=== PATIENT | male | born 1980 | race Caucasian/White ===

== ENCOUNTER 2018-03-24 08:11 | Inpatient (IN) | payer OTHER ==
[~2018-03-24] VITALS: Ht 162.6 cm; Wt 72.6 kg
--- NOTE | 2018-03-24 14:45 | NUR ---
Pre Admission Insole Lip Turner encounters pt in intake office. Pt is intoxicated and smells of alcohol. Endorses having 5 shots of whiskey at 1030 this morning. Pt endorse beginning to feel anxious, like he does when not drinking. Pt endorses drinking 750ml of Whiskey daily for the past 5 years. Pt is A/O x4 and makes his needs known. Pt with a flat affect and depressed mood. Linear thought process and clear to slurred speech pattern. Pt is stable. Vital Signs BP: 137/85 P: 95 R: 18 T: 98.4 O2: 95%
[2018-03-24] MEDS ORDERED: DIAZEPAM 5 MG TABLET PO PRN (15:00)
[2018-03-24] MEDS ORDERED: THIAMINE HCL 200 MG/2 ML VIAL IM ONE (15:00)
[2018-03-24] MEDS ORDERED: MAGNESIUM HYDROXIDE 30 ML LIQUID UDC PO PRN (15:00)
[2018-03-24] MEDS ORDERED: LOPERAMIDE HCL 2 MG CAPSULE PO PRN ×2 (15:00)
[2018-03-24] MEDS ORDERED: ONDANSETRON ODT 4 MG TAB.RAPDIS SL PRN (15:00)
[2018-03-24] MEDS ORDERED: MIRALAX 17 GM POWD.PACK PO PRN (15:00)
[2018-03-24] MEDS ORDERED: diphenhydrAMINE 50 MG CAPSULE PO PRN (15:00)
[2018-03-24] MEDS ORDERED: ACETAMINOPHEN 325 MG TABLET PO PRN (15:00)
[2018-03-24] MEDS ORDERED: DIAZEPAM 10 MG TABLET PO PRN ×2 (15:00)
[2018-03-24] MEDS ORDERED: MAG HYDROX/AL HYDROX/SIMETH 30 ML LIQUID UDC PO PRN (15:00)
[2018-03-24] MEDS ORDERED: CLONIDINE HCL 0.1 MG TABLET PO PRN (15:00)
[2018-03-24] MEDS ORDERED: 5 DAY TAPER VALIUM-SERENITY PROTOCOL PO PRN (15:00)
[2018-03-24] MEDS ORDERED: LORAZEPAM 2 MG/1 ML VIAL IM PRN (15:00)
[2018-03-24] MEDS ORDERED: ONDANSETRON 4 MG/2 ML VIAL IM PRN (15:00)
--- NOTE | 2018-03-24 15:25 | NUR ---
Admission Pt is admitted to [facility] per ambulation, for medical management of ETOH withdrawals. Pt is calm and cooperative, pleasant with marketing copywriter. A/O x4 and makes his needs known. Pt with a linear though process and clear speech pattern. Pt is anxious and beginning to sweat, with some nausea and restlessness noted. Pt endorses drinking 750ml of Whiskey daily x5 years. Pt states his last drink was at 1030 today, when he consumed approximately 5 shots of Whiskey. Pt endorses once a year use of Cocaine and Marijuana. Pt states he was sober for 9 months about 9 years ago after receiving a DUI. Pt endorses this being court ordered. Pt states he first drank alcohol at age 15. Pt states he suffers from nausea, anxiety and tremors when not drinking or more specifically in the mornings. Pt denies a PMH with the exception of a skin yeast over his back and lower rear torso. Pt denies any PPH. Pt states he came to [facility], "to get back to where I was, tired of being tired." " I want to get the tools to stop drinking." " I want to get healthy and get back to being me." " I know I am motivated to stop drinking, so I haven't even thought of relapse." Pt endorses 2 DUI's and relationship issues, including the end of his first marriage directly related to pt's drinking. This is pt's first detox or rehab and his first attempt at continued sobriety. Pt denies any PCP, psychiatrist or psychologist. Pt is admitted and educated on all aspects of admit process, including admission educational material. Pt is oriented to his room and unit, including rules and regulations. Will continue to monitor, support and encourage according to plan of care. Addendum: 03/24/18 at 1628 by GIANCARLO SEPULVEDA RN Pt takes no home medication except for multi-vitamin. Vital Signs BP: 137/85 P: 95 R: 18 T: 98.4 O2: 95% P:010 Addendum: 03/24/18 at 1629 by GIANCARLO SEPULVEDA RN Pt with no history of SA, SI/HI or A/VH. Pt with no history of psychiatric hospitalizations.
[2018-03-24] MEDS: HYDROXYZINE PAMOATE 25 MG CAPSULE PO PRN (15:47)
--- NOTE | 2018-03-24 15:47 | NUR ---
PRN Vistaril Pt is anxious and restless and requests something for anxiety and agitation. Pharmaceutical Process Engineer administered medication per MD order with pt tolerating well. Will continue to monitor, support and encourage according to plan of care.
[2018-03-24 16:43] LABS: *AMPHETAMINE, URINE NEGATIVE (NEGATIVE); *BARBITURATE, URINE NEGATIVE (NEGATIVE); *CANNABINOID, URINE NEGATIVE (NEGATIVE); *COCCAINE, URINE NEGATIVE (NEGATIVE); *OPIATE, URINE NEGATIVE (NEGATIVE); *PHENCYCLIDINE SCREEN,URINE NEGATIVE (NEGATIVE)
--- NOTE | 2018-03-24 16:47 | NUR ---
PRN Re-Assessment Medication effective as evidenced by pt resting with eyes closed, even and unlabored respirations noted. Will continue to monitor, support and encourage according to plan of care.
[2018-03-24 16:55] VITALS: BP 137/85
--- NOTE | 2018-03-24 16:55 | NUR ---
CIWA 9 Pt is beginning to withdraw, with tremors and diaphoresis evident, pt with complaints of tactile hallucinations and nausea. Will continue to monitor, support and encourage according to plan of care.
[2018-03-24 17:49] LABS: BASOPHILS % (AUTO) 0.6 % (0.0-2.0); EOSINOPHILS % (AUTO) 0.3 % (0.0-7.0); HEMATOCRIT 48.3 % (36.7-47.1); HEMOGLOBIN 16.1 g/dL (12.5-16.3); LYMPHOCYTES # (AUTO) 1.4 K/uL (20.0-40.0); LYMPHOCYTES % (AUTO) 33.1 % (20.5-51.5); MEAN CORPUSCULAR HEMOGLOBIN 33.4 uug (23.8-33.4); MEAN CORPUSCULAR HGB CONC 33 g/dL (32.5-36.3); MEAN CORPUSCULAR VOLUME 100.2 fL (73.0-96.2); MONOCYTES # (AUTO) 0.4 K/uL (2.0-10.0); MONOCYTES % (AUTO) 9.3 % (0.0-11.0); NEUTROPHILS # (AUTO) 2.4 K/uL (1.8-8.9); NEUTROPHILS % (AUTO) 56.7 % (38.5-71.5); PLATELET COUNT (AUTO) 193 K/uL (152-348); RED BLOOD CELL COUNT(AUTO) 4.83 MIL/uL (4.06-5.63); WHITE BLOOD COUNT (AUTO) 4.2 K/uL (3.6-10.2)
[2018-03-24 18:32] LABS: BILIRUBIN,TOTAL 0.4 mg/dL (0.2-1.0); CREATININE 0.9 mg/dL (0.6-1.3); MAGNESIUM 2.1 mg/dL (1.8-2.4); POTASSIUM 3.8 mmol/L (3.5-5.1); TOTAL PROTEIN, SERUM 8.3 g/dL (6.4-8.2)
--- NOTE | 2018-03-24 19:00 | NUR ---
End of Shift Silo Operator admitted pt to [facility] today for medical management of ETOH withdrawals. Pt endorses drinking 750ml a day x5 years, last drinking 5 shots at 1030 this am. Pt endorses no PMH or PPH. No history of seizures. This is pts first time in detox or rehab. Pt was admitted mildly intoxicated, but has started having withdrawal symptoms of anxiety, nausea and restless and was administered Vistaril(Anxiety) PRN this shift. Pts last CIWA 9. Pt is calm and cooperative, with anxiety and restless. Pt has a linear thought process and clear speech pattern. Pt with a normal affect and depressed mood. Bed in low position with wheels locked and side rails up x2.
[2018-03-24 20:00] VITALS: BP 128/77
--- NOTE | 2018-03-24 20:00 | NUR ---
Start of Shift Patient noted to be melancholic, isolative and in depressed mood. Patient stares into the ceiling while being spoken to. Patient noted to have gross tremors, gets easily distracted, with increasing anxiety, flushed face and sweating on the face. Patient verbalized: Im starting to feel withdrawal from drinking. I dont like this feeling. Usually, when I start to feel like this, I start drinking and then I feel better. Provided education on importance of adhering to treatment plan and medications that are available to control his withdrawal symptoms. Patient appears disheveled and encouraged patient to take a shower. Latest CIWA=18. Will continue to monitor.
--- NOTE | 2018-03-24 20:37 | NUR ---
RN note PRN Valium Pt noted to have light sensitivity, tremors, increasing anxiety and observed to be fidgety. CIWA=18. Administered Valium 20 mg PO PRN as ordered. Will reassess.
--- NOTE | 2018-03-24 20:40 | NUR ---
PRN Nicotine Patch Pt verbalized Nicotine cravings and requested for Nicotine patch. 14mg administered as ordered.
[2018-03-24] MEDS ORDERED: NICOTINE 14 MG/24HR PATCH TD PRN (21:00)
--- NOTE | 2018-03-24 21:30 | NUR ---
RN note Valium reassess Patient verbalized "feeling better" and decrease in anxiety level. CIWA=12.
--- NOTE | 2018-03-24 21:45 | NUR ---
RN note Nicotine reassess Patient verbalized that his Nicotine cravings has significantly decreased.
[2018-03-25] VITALS: BP 125/68
[2018-03-25 04:00] VITALS: BP 118/71
--- NOTE | 2018-03-25 07:21 | NUR ---
End of Shift Patient continues to be in depressed mood. Patient is melancholic and verbalized feeling fatigue. Patient also continues to have gross tremors, anxiety and flushed face. Patient is observed to have difficulty concentrating. Patient is unkempt and was reminded to take a shower this morning. Fall, universal, seizure and safety prec in place the whole shift. Call light within reach. Latest CIWA=11, slept for 7 hours. Endorsed to AM shift nurse for continuity of care.
--- NOTE | 2018-03-25 07:30 | NUR ---
Start of Shift Appraiser Land received report on 38 year old male admitted to [facility] on 03/24/18 for medical management of ETOH withdrawals. Pt endorses NKA, full code and regular diet. Pt with no PMH and no PPH. Pt to start a Valium taper this morning. Last CIWA 11, per NOC report. Pt administered Valium(withdrawal symptoms) PRN on NOC, per report. Appraiser Land encounters pt in pts room, pt is resting with eyes closed, even and unlabored respirations with rise and fall of chest. Bed in low position with wheels locked and side rails up x2. Will continue to monitor, support and encourage according to plan of care.
--- NOTE | 2018-03-25 08:00 | NUR ---
CIWA 14 Pt complains of nausea, pt is tremulous, diaphoretic, restless and endorses anxiety. Will continue to monitor, support and encourage according to plan of care.
[2018-03-25 08:15] VITALS: BP 145/93
[2018-03-25] MEDS ORDERED: TUBERCULIN,PURIF.PROT.DERIV. 5 TU/0.1 ML TEST ID ONE (09:00)
[2018-03-25] MEDS: FOLIC ACID 1 MG TABLET PO SCH (09:25)
[2018-03-25] MEDS: DIAZEPAM 10 MG TABLET PO SCH ×4 (09:25→20:55)
[2018-03-25] MEDS: MULTIVITAMINS,THERAPEUTIC TABLET PO SCH (09:25)
[2018-03-25] MEDS: THIAMINE HCL 100 MG TABLET PO SCH (09:25)
[2018-03-25 12:45] VITALS: BP 145/85
[2018-03-25 17:20] VITALS: BP 144/91
--- NOTE | 2018-03-25 17:21 | NUR ---
CIWA 15 Pt complains of nausea and chills with sweats. Pt is diaphoretic and tremulous with anxiety and restlessness. Will continue to monitor, support and encourage according to plan of care.
[2018-03-25] MEDS ORDERED: TRAZODONE 50 MG TABLET PO PRN (17:45)
--- NOTE | 2018-03-25 18:56 | NUR ---
End of Shift Donation Specialist provided report on 38 year old male admitted to [facility] on 03/24/18 for medical management of ETOH withdrawals. Pt endorses NKA, full code and regular diet. Pt with no PMH and no PPH. Pt to start a Valium taper this morning. Last CIWA 15 recorded at 1630. Pt with no PRN medication administered. Pt isolates to room and self. Guarded and withdrawn from staff and peers. Flat affect with depressed mood, dysphonic. A/O x4 and makes his needs known. Pt is calm, cooperative and pleasant. Pt has been diaphoretic, tremulous, anxious and restless with complaints of chills. Bed in low position with wheels locked and side rails up x2.
--- NOTE | 2018-03-25 19:11 | NUR ---
Start of shift note Received report from day shift nurse. Pt is a 38 yo male, A+Ox4, presenting to [facility] for ETOH withdrawal. Pt noted to be anxious, restless, and agitated. Pt has HX of yeast rash on back which will be monitored during shift. Pt is on 5 day Valium taper, tolerated well. Respirations even and unlabored. Will continue to monitor.
[2018-03-25] MEDS: IBUPROFEN 600 MG TABLET PO PRN (19:45)
--- NOTE | 2018-03-25 19:47 | NUR ---
PRN Motrin Pt c/o headache 02/08 and requested for PRN Motrin. Medication given and tolerated well. Will reassess within 1 HR. Will continue to monitor.
[2018-03-25 20:10] VITALS: BP 141/83
--- NOTE | 2018-03-25 20:10 | NUR ---
CIWA Assessment CIWA: 15. Pt noted with fine tremors, sweats, anxiety, agitation, itchiness, and moderately severe headache. Respirations even and unlabored. Will continue to monitor.
--- NOTE | 2018-03-25 20:45 | NUR ---
PRN Motrin Reassessment Medication mildly effective. Pt expresses reduction in headache to 4/10. No s/s of ASE noted at this time. Respirations even and unlabored. Will continue to monitor.
--- NOTE | 2018-03-25 21:59 | NUR ---
PRN Trazodone Pt c/o inability to sleep and requested for PRN Trazodone. Medication given and tolerated well. Will reassess within 1 HR. Will continue to monitor.
[2018-03-25] MEDS: HYDROXYZINE PAMOATE 25 MG CAPSULE PO PRN (22:11)
--- NOTE | 2018-03-25 22:11 | NUR ---
PRN Vistaril Pt c/o itchiness and anxiety and requested for PRN Vistaril. Medication given and tolerated well. Will reassess within 1 HR. Will continue to monitor.
--- NOTE | 2018-03-25 22:55 | NUR ---
PRN Trazodone and Vistaril Reassessment Pt expresses reduction in anxiety and itchiness. Pt is resting well in bed. No s/s of ASE noted at this time. Respirations even and unlabored. Will continue to monitor.
--- NOTE | 2018-03-26 00:37 | NUR ---
V/S refused and CIWA deferred for sleep. Respirations even and unlabored. Will continue to monitor.
--- NOTE | 2018-03-26 04:08 | NUR ---
V/S refused and CIWA deferred for sleep. Respirations even and unlabored. Will continue to monitor.
--- NOTE | 2018-03-26 07:00 | NUR ---
End of shift note Pt was continuously noted with agitation, restlessness, anxiety, and headache. Pt remained in room for majority of shift except to get food from kitchen and to go smoke on smoking patio. Pt remained cooperative and compliant with all aspects of treatment. Pt was given PRN Motrin @1947, PRN Trazodone @2159, and PRN Vistaril @2211. Pt is on 5 day Valium taper, tolerated well. Pt slept for a total of 7 HRS. Last CIWA: 15 @2009. Respirations even and unlabored. Will endorse to day shift nurse.
[2018-03-26 07:54] LABS: BILIRUBIN,TOTAL 0.6 mg/dL (0.2-1.0); POTASSIUM 4.3 mmol/L (3.5-5.1); TOTAL PROTEIN, SERUM 7.6 g/dL (6.4-8.2)
[2018-03-26 08:00] VITALS: BP 119/88
--- NOTE | 2018-03-26 08:00 | NUR ---
START OF SHIFT Received report from maintenance technician 3rd shift nurse. Pt is lying in bed resting and easily arousable. He is a 38 yo male admitted to [facility] on 03/24 for ETOH withdrawal. 5 Day Valium taper started on 03/25. He is A&O and ambulatory. Last CIWA was 15 at 1999. He received PRN Trazodone last night for difficulty sleeping. This morning he presents with irritability, light sensitivity, red eyes, tremors, and sweating. He states I changed my clothes three times so far and did not sleep well at all last night. Pt has a blunted affect and depressed mood. RR are even and unlabored, lung sounds clear bilaterally, abdomen soft and non tender, skin is warm with diaphoresis. Valium taper due this morning. Safety measures in place.
[2018-03-26] MEDS: FOLIC ACID 1 MG TABLET PO SCH (09:35)
[2018-03-26] MEDS: DIAZEPAM 10 MG TABLET PO SCH ×3 (09:36→21:27)
[2018-03-26] MEDS: THIAMINE HCL 100 MG TABLET PO SCH (09:36)
[2018-03-26] MEDS: MULTIVITAMINS,THERAPEUTIC TABLET PO SCH (09:36)
--- NOTE | 2018-03-26 09:37 | NUR ---
CIWA Prior to morning medications, pt presents with tremors, diaphoresis, parasthesias, red eyes, anxiety, and agitation. He is irritable and labile with depressed mood. There are several half empty water and soda bottles around the room. He reports difficulty sleeping and has not yet eaten breakfast due to poor appetite. CIWA score 14
[2018-03-26 12:00] VITALS: BP 124/76
[2018-03-26 12:08] LABS: HEPATITIS B SURFACE AG Negative (Negative)
--- NOTE | 2018-03-26 12:30 | NUR ---
CIWA 15 Pt presents with facial flushing, moist skin, nausea, tremors, parasthesias, restricted affect, anhedonia, anxiety and agitation. Pt expressed concern about inability to sleep at night. Psychiatrist made aware. Encouraged increased fluid intake. Addendum: 03/26/18 at 1654 by CHE PONCE RN Heart rate: 98
[2018-03-26 16:30] VITALS: BP 123/78
--- NOTE | 2018-03-26 16:30 | NUR ---
CIWA 11 Pt has moist skin, facial flushing, anxiety, and tremors. His affect is blunt and mood is depressed. Encouraged the development of coping skills. CIWA score is 11.
--- NOTE | 2018-03-26 19:23 | NUR ---
END OF SHIFT Report provided to substation operator nurse. Pt is attending a group meeting. He is a 38 yo male admitted to [facility] on 03/24 for ETOH withdrawal. Pt is A&O and ambulatory. 5 Day Valium taper started on 03/25. He experienced excessive sweating, anxiety, facial flushing, and worry regarding sleep tonight. The pt had difficulty staying sleep last night after PRN Trazodone. Psychiatrist switched Trazodone to Seroquel. No PRN medications administered during the shift. He was pre-occupied with calling home. Pt seems motivated for treatment and attended group meetings. He is compliant with medication regime. Valium is effective at minimizing withdrawal symptoms. Pt denies SI/HI. Last CIWA was 11 at 1630. Safety measures in place
--- NOTE | 2018-03-26 19:24 | NUR ---
Start of shift note Received report from day shift nurse. Pt is a 38 yo male, A+Ox4, presenting to [facility] for for ETOH withdrawal. Pt noted to be anxious, agitated, and restlessness. Pt has HX of yeast rash on back which will be monitored during shift. Pt is on 5 day Valium taper, tolerated well. Respirations even and unlabored. Will continue to monitor.
[2018-03-26 20:49] VITALS: BP 128/87
--- NOTE | 2018-03-26 20:49 | NUR ---
CIWA Assessment CIWA: 10. Pt noted with fine tremors, sweats, anxiety, agitation, and itchiness. Respirations even and unlabored. Will continue to monitor.
[2018-03-26] MEDS: QUETIAPINE FUMARATE 25 MG TABLET PO PRN (22:20)
--- NOTE | 2018-03-26 22:20 | NUR ---
PRN Seroquel Pt c/o inability to sleep and requested for PRN Seroquel. Medication given and tolerated well. Will reassess within 1 HR. Will continue to monitor.
--- NOTE | 2018-03-26 22:46 | NUR ---
PRN Trazodone Pt c/o inability to sleep and requested for PRN Trazodone. Medication given and tolerated well. Will reassess within 1 HR. Will continue to monitor. Addendum: 03/26/18 at 2328 by JÚNIOR ASTUDILLO LVN Error, incorrect patient.
--- NOTE | 2018-03-26 23:20 | NUR ---
PRN Seroquel Reassessment Medication effective. Pt is resting well in bed. No s/s of ASE noted at this time. Respirations even and unlabored. Will continue to monitor.
--- NOTE | 2018-03-27 00:09 | NUR ---
V/S refused and CIWA deferred for sleep. Respirations even and unlabored. Will continue to monitor.
--- NOTE | 2018-03-27 04:57 | NUR ---
V/S refused and COWS and CIWA deferred for sleep. Respirations even and unlabored. Will continue to monitor. Addendum: 03/27/18 at 0532 by JÚNIOR ASTUDILLO LVN CIWA deferred
--- NOTE | 2018-03-27 07:00 | NUR ---
End of shift note Pt was continuously noted with restlessness, agitation, and anxiety. Pt remained in room for majority of shift except to get food from kitchen and to go smoke on smoking patio. Pt remained compliant and cooperative in all aspects of treatment. Pt was given PRN Seroquel @2220. Pt is on 5 day Valium taper, tolerated well. Pt slept for a total of 7 HRS. Last CIWA: 10 @1999. Respirations even and unlabored. Will endorse to day shift nurse.
--- NOTE | 2018-03-27 07:36 | NUR ---
Start Of Shift Patient is a 38 yr old male who was admitted to [facility] on 03/24/18 for a medically supervised withdrawal from Alcohol ( Whisky). He has been placed on a 5 day Valium taper and this is day 3. PRN medications given on PM shift : Seroquel for sleep. He slept for 7+ hours and his last CIWA was 10. Currently he is in bed asleep , breathing even and unlabored, side rails upx2 and call light within reach. Continue to follow MD plan of care and offer support as needed.
[2018-03-27 08:00] VITALS: BP 117/67
--- NOTE | 2018-03-27 08:30 | NUR ---
WA 11 Patients withdrawal symptoms present as flushed face and clammy skin, diaphoresis, irritability and restlessness. No PRN medications were requested or required, scheduled Valium 5 MG PO was given.
[2018-03-27] MEDS: THIAMINE HCL 100 MG TABLET PO SCH (08:40)
[2018-03-27] MEDS: FOLIC ACID 1 MG TABLET PO SCH (08:40)
[2018-03-27] MEDS: MULTIVITAMINS,THERAPEUTIC TABLET PO SCH (08:41)
[2018-03-27] MEDS: DIAZEPAM 5 MG TABLET PO SCH ×4 (08:41→21:37)
[2018-03-27 12:00] VITALS: BP 121/78
--- NOTE | 2018-03-27 12:00 | NUR ---
[facility] 12 Patient withdrawal symptoms present as headache, diaphoresis, bilateral hand tremors, flushed face and restlessness.
[2018-03-27 16:00] VITALS: BP 125/81
--- NOTE | 2018-03-27 16:00 | NUR ---
[facility] 12 Patients withdrawal symptoms include diaphoresis, restlessness, increased irritability and lethargy. No PRN medications were requested but were offered .
--- NOTE | 2018-03-27 18:58 | NUR ---
End Of Shift: Patient is a 38 yr old male who was admitted to [facility] on 03/24/18 for a medically supervised withdrawal from Alcohol ( Whiskey). He is on day 3 of a 5 day Valium taper which is well tolerated. No PRN medications were requested or required on this shift. His withdrawal symptoms have included diaphoresis, lethargy, bilateral hand tremors and restlessness. He is motivated in his recovery and has attended all groups today and is interacting appropriately with his peers. He had a fluid intake of 2400ML,5 Voids and 1BM. Last CIWA 12 @ 1600. Continue to follow MD plan of care, endorsed to slot shift manager
--- NOTE | 2018-03-27 19:10 | NUR ---
Start of shift note Received report from day shift nurse. Pt is a 38 yo male, A+Ox4, presenting to [facility] for ETOH withdrawal. Pt noted with restlessness, anxiety, and agitation. Pt has HX of yeast rash on back which will be monitored during shift. Pt is on 5 day Valium taper, tolerated well. Respirations even and unlabored. Will continue to monitor.
[2018-03-27 20:12] VITALS: BP 138/79
--- NOTE | 2018-03-27 20:12 | NUR ---
CIWA Assessment CIWA: 9. Pt noted with fine tremors, sweat on forehead, anxiety, agitation, and itchiness. Respirations even and unlabored. Will continue to monitor.
[2018-03-27] MEDS: QUETIAPINE FUMARATE 25 MG TABLET PO PRN (23:07)
--- NOTE | 2018-03-27 23:07 | NUR ---
PRN Seroquel Pt c/o inability to sleep and requested for PRN Seroquel. Medication given and tolerated well. Will reassess within 1 HR. Will continue to monitor.
--- NOTE | 2018-03-28 00:48 | NUR ---
V/S refused and CIWA deferred for sleep. Respirations even and unlabored. Will continue to monitor.
--- NOTE | 2018-03-28 04:55 | NUR ---
V/S refused and CIWA deferred for sleep. Respirations even and unlabored. Will continue to monitor.
--- NOTE | 2018-03-28 07:00 | NUR ---
End of shift note Pt was continuously noted with agitation, anxiety, and restlessness. Pt remained in room for majority of shift except to get food from kitchen and to go smoke on smoking patio. Pt remained cooperative and compliant with all aspects of treatment. Pt was given PRN Seroquel @2307. Pt is on 5 day Valium taper, tolerated well. Pt slept for a total of 6 HRS. Last CIWA: 9 @1999. Respirations even and unlabored. Will endorse to day shift nurse.
--- NOTE | 2018-03-28 07:30 | NUR ---
Start of Shift Pt. is a 38 y/o male admitted for the medically managed withdrawal from ETOH. Pt. was placed on a 5 day valium taper to manage withdrawal symptoms. Endorsed pt. continually presented with anxiety, agitation, and restlessness. Received pt. in room. Pt. in his bed with eyes closed. No signs of SOB noted. Pt. was given PRN Seroquel during previous shift. Pt. has been compliant with medication regiment and treatment plan thus far. Last CIWA of 9. Safety measures in place. Will continue to monitor pt.s behavior for safety.
[2018-03-28 08:00] VITALS: BP 119/73
--- NOTE | 2018-03-28 08:00 | NUR ---
CIWA Assessment CIWA of 8. Pt. in bed with eyes open. Pt. presents with fine hand tremors, diaphoresis, anxiety and restlessness. Pt. compliant with his medication regiment and treatment plan. Pt. to be given dose of taper medication (Valium 5mg) within the next hour. Will continue to monitor pt.'s behavior for safety.
[2018-03-28] MEDS: FOLIC ACID 1 MG TABLET PO SCH (08:32)
[2018-03-28] MEDS: MULTIVITAMINS,THERAPEUTIC TABLET PO SCH (08:32)
[2018-03-28] MEDS: THIAMINE HCL 100 MG TABLET PO SCH (08:32)
[2018-03-28] MEDS: DIAZEPAM 5 MG TABLET PO SCH ×3 (08:32→20:31)
--- NOTE | 2018-03-28 12:00 | NUR ---
CIWA Assessment CIWA of 7. Pt. in his room getting his vitals taken. Pt. still presents with fine hand tremors, diaphoresis, anxiety and restlessness. Pt. compliant with his medication regiment and treatment plan. Pt. to be given dose of taper medication (Valium 5mg) at 1500. Will continue to monitor pt.'s behavior for safety
[2018-03-28 12:14] VITALS: BP 140/82
[2018-03-28 16:00] VITALS: BP 141/86
--- NOTE | 2018-03-28 16:00 | NUR ---
CIWA Assessment CIWA of 7. Pt. in laying in bed watching television. Pt. still presents with fine hand tremors, diaphoresis, anxiety and restlessness. Pt. compliant with his medication regiment and treatment plan. Will continue to monitor pt.'s behavior for safety
[2018-03-28] MEDS: KETOCONAZOLE 2% CREAM 30 GM TUBE TP SCH (18:48)
--- NOTE | 2018-03-28 19:18 | NUR ---
End of Shift Pt. is a 38 y/o male admitted for the medically managed withdrawal from ETOH. Pt. was placed on a 5 day valium taper to manage withdrawal symptoms. Throughout shift pt. continually presented with anxiety, agitation, and restlessness. Pt. has been compliant with medication regiment and treatment plan thus far. Pt. able to make his needs be known and was encouraged to verbalize concerns and emotions Last CIWA of 7 at 1600 no PRNs given during previous shift.. Safety measures in place. Will endorse pt.s behavior and care to oncoming shift.
--- NOTE | 2018-03-28 19:30 | NUR ---
Start of Shift Pt admitted 03/24/18 for medically managed withdrawal from ETOH (750mls whiskey/day) on day 4 of a 5 day Valium taper. Pt denies any PMH or PPH. Family Hx of SA with both father and mother. Room somewhat disheveled with empty food and drink containers, pt unshaven.Pt appears older than stated age, unkempt, with poor eye contact. Pt presenting with light diaphoresis, anxiety, agitation, and hand tremors. Pt denies H/A, B/A's, questioning bowel habits (switching from diarrhea to solid, 1-2 times daily). Pt undergoing relationship stress, with ex and mother of his children threatening to remove children from him. Planning on going to 30 day rehab following d/c, doesnt want to be like his father and relapsing same day he gets d/c'd. Will monitor for duration of shift, promptly attending to all s/sx's w/d or distress.
[2018-03-28 20:00] VITALS: BP 146/92
--- NOTE | 2018-03-28 20:00 | NUR ---
CIWA Score CIWA of 6, aeb hand tremors, sweats, restlessness, and anxiety, HR > 100, BP 146/92
[2018-03-28] MEDS: QUETIAPINE FUMARATE 25 MG TABLET PO PRN (20:31)
--- NOTE | 2018-03-28 20:31 | NUR ---
PRN Med Seroquel 50mg PO given for insomnia/sleep. Will continue to monitor, reassessing in 1 hour.
--- NOTE | 2018-03-28 21:31 | NUR ---
PRN Reassessment Seroquel 50mg PO given 1 hour prior for sleep/insomnia. At present pt is sleeping, RR 14, even and nonlabored. Will continue to monitor, and promptly attend to all s/sx's distress or w/d.
[2018-03-29] VITALS: BP 125/58
--- NOTE | 2018-03-29 | NUR ---
Midnight Rounds VS's obtained/stable, CIWA deferred r/t pt somnalance. RR 16, even and nonlabored. Will continue to monitor and promptly attend to all s/sx's distress or w/d
[2018-03-29 04:00] VITALS: BP 130/77
--- NOTE | 2018-03-29 04:00 | NUR ---
0400 Rounds VS's obtained/stable, CIWA deferred r/t pt somnalance. RR 16, even and nonlabored. Will continue to monitor and promptly attend to all s/sx's distress or w/d
--- NOTE | 2018-03-29 07:11 | NUR ---
End of Shift Endorsement given to day nurse. Pt admitted 03/24/18 for medically managed withdrawal from ETOH (750mls whiskey/day) on day 4 of a 5 day Valium taper. Pt denies any PMH or PPH. Family Hx of SA with both father and mother. Pt appearing older than stated age with avoidant eye contact, unshaven and unkempt, hand tremors and light diaphoresis. Pt anxious and restless prior to sleep. Pt slept for 7 hours after receiving Seroquel 50mg PO as sole PRN for shift. VS's obtained 2000, midnight, and 0400 hours, CIWA deferred due to pt somnalence. Pt voided 2 times with 1340 mls intake and no BM's.
[2018-03-29 08:00] VITALS: BP 117/80
--- NOTE | 2018-03-29 08:03 | NUR ---
START OF SHIFT: Received Pt A/O X 4. He reports anxiety,restlessness,and fatigue. He continues on Valium taper to manage s/s of w/d. CIWA 11. Fine tremors noted. Encouraged group attendance to improve coping skills and prevent relapse. Encouraged increased fluids to assist in facilitating detox process.
[2018-03-29] MEDS: FOLIC ACID 1 MG TABLET PO SCH (09:38)
[2018-03-29] MEDS: IBUPROFEN 600 MG TABLET PO PRN (09:38)
[2018-03-29] MEDS: MULTIVITAMINS,THERAPEUTIC TABLET PO SCH (09:39)
[2018-03-29] MEDS: DIAZEPAM 5 MG TABLET PO SCH ×2 (09:39→21:09)
[2018-03-29] MEDS: THIAMINE HCL 100 MG TABLET PO SCH (09:39)
[2018-03-29] MEDS: KETOCONAZOLE 2% CREAM 30 GM TUBE TP SCH (09:40)
[2018-03-29 12:00] VITALS: BP 116/69
--- NOTE | 2018-03-29 13:28 | NUR ---
Therapist prompted client to attend group therapy sessions.
[2018-03-29 16:00] VITALS: BP 120/78
--- NOTE | 2018-03-29 19:06 | NUR ---
END OF SHIFT: Pt continues on Valium taper to manage s/s of w/d which include anxiety,restlessness fatigue and fine tremors. He attended groups and interacted with peers. Will pass shift report to oncoming night nurse.
--- NOTE | 2018-03-29 19:30 | NUR ---
Start of Shift Endorsement received from day nurse. Pt admitted 03/24/18 for medically managed withdrawal from ETOH (750ml/day whiskey). Pt denies any PPH/PMH, seizures, or SI/HI. Pt on day 5 of a 5 day Valium taper. Pt with flat affect, depressed/worried/sad appearance. Room disheveled with empty food and drink containers, clothing strewn across room. Pt is unshaven, appearing older than stated age. Pt has poor dental hygiene and odor in room. Pt talking about ex and "baby mama" and children again, stating how he wants to "clean up" so that he doesn't have kids taken from him, and doesn't want to be like his own father was. Disease process, stress management skills reviewed. Will continue to monitor for any s/sx's distress or w/d and promptly attend.
[2018-03-29 20:00] VITALS: BP 139/86
--- NOTE | 2018-03-29 20:00 | NUR ---
2000 Withdrawal S/Sx's CIWA 9, aeb diaphoresis, fine tremors, anxiety and agitation, anhedonia, depression, difficulty sleeping, fatigue and malaise
[2018-03-29] MEDS: QUETIAPINE FUMARATE 25 MG TABLET PO PRN (21:08)
--- NOTE | 2018-03-29 21:08 | NUR ---
PRN Med Seroquel 50mg PO given for insomnia. Will continue to monitor pt, reassessing in 1 hour
--- NOTE | 2018-03-29 22:08 | NUR ---
PRN Reassessment Seroquel 50mg PO given for insomnia 1 hour prior. At present, pt reports "feeling drowsy, and will be going to bed soon." Med effective. Will continue to monitor, and promptly attend to all s/sx's w/d or distress.
[2018-03-30] VITALS: BP 112/62
--- NOTE | 2018-03-30 | NUR ---
Midnight Rounds VS's obtained and stable, CIWA deferred r/t pt somnalance. Will continue to monitor and promptly attend to all s/sx's of w/d or distress.
[2018-03-30 04:00] VITALS: BP 114/72
--- NOTE | 2018-03-30 04:00 | NUR ---
0400 Rounds VS's obtained and stable, CIWA deferred r/t pt somnalance. Will continue to monitor and promptly attend to all s/sx's of w/d or distress.
--- NOTE | 2018-03-30 07:30 | NUR ---
Start Of Shift: Patient is a 38 yr old male who was admitted to [facility] on 03/24/18 for a medically supervised withdrawal from Alcohol ( Whiskey) He has completed a 5 day Valium taper and will be discharged tomorrow. PRN Seroquel was given on PM shift, he slept for 9 hours and last CIWA was 9 @ 8PM. He is awake at this time and voices no concerns. Continue to follow MD plan of care and offer support as needed.
[2018-03-30 07:39] LABS: BILIRUBIN,DIRECT 0.1 mg/dL (0.0-0.2); BILIRUBIN,TOTAL 0.2 mg/dL (0.2-1.0); TOTAL PROTEIN, SERUM 7.2 g/dL (6.4-8.2)
--- NOTE | 2018-03-30 07:54 | NUR ---
End of Shift Endorsement given to day nurse. Pt admitted 03/24/18 for medically managed withdrawal from ETOH (750ml/day whiskey). Pt denies any PPH/PMH, seizures, or SI/HI. Pt has completed his 5 day Valium taper. Pt remains depressed, worried about contact with children and exwife and "girlfriend" threatening removal of children, with flat affect, odor to room. W/d symptoms still include diaphoresis, fine tremors, anxiety and restlessness, and insomnia. PRN for shift was Seroquel 50mg PO for insomnia. Pt slept for 9 hours, with 1.15L intake and 2 voids
[2018-03-30 08:00] VITALS: BP 126/76
--- NOTE | 2018-03-30 09:00 | NUR ---
CIWA 9 Withdrawal symptoms include increased anxiety/agitation, lethargy, depressed flat affect, bilateral hand tremors and warm clammy skin.
[2018-03-30] MEDS: MULTIVITAMINS,THERAPEUTIC TABLET PO SCH (09:07)
[2018-03-30] MEDS: FOLIC ACID 1 MG TABLET PO SCH (09:07)
[2018-03-30] MEDS: THIAMINE HCL 100 MG TABLET PO SCH (09:07)
[2018-03-30] MEDS: KETOCONAZOLE 2% CREAM 30 GM TUBE TP SCH (09:08)
[2018-03-30 12:00] VITALS: BP 133/92
--- NOTE | 2018-03-30 12:25 | NUR ---
WA 9 Withdrawal symptoms include restlessness, increased anxiety/irritability, lethargy and warm clammy skin. he denies the need for any PRN medication.
--- NOTE | 2018-03-30 13:04 | NUR ---
Therapist prompted client to attend group therapy sessions.
[2018-03-30 16:00] VITALS: BP 127/80
--- NOTE | 2018-03-30 16:12 | NUR ---
CIWA 8 withdrawal symptoms present as increased anxiety, restlessness and lethargy, no PRN medications requested or required.
--- NOTE | 2018-03-30 19:30 | NUR ---
Start of Shift Endorsement received from day nurse. Pt admitted 03/24/18 for medically managed withdrawal from ETOH (750ml/day whiskey). Pt denies any PPH/PMH, seizures, or SI/HI. Pt has completed his 5 day Valium taper and is to be d/c'd to rehab in am tomorrow. Pt appears depressed and sad, affect is flat with poor eye contact. Pt remains disheveled, unshaven and unwashed. Oriented x 4. Pt states he is anxious over being d/c'd in am to rehab. Stress management and coping skills reviewed. Disease process and triggers also discussed. Will continue to monitor for shift, endorsing in am, and attending to all s/sx's w/d or distress promptly.
--- NOTE | 2018-03-30 19:53 | NUR ---
End Of Shift: Patient is a 38 yr old male who was admitted to [facility] on 03/24/18 for a medically supervised withdrawal from Alcohol. He has completed a 5 day Valium taper and will be discharge tomorrow 03/31/18 to [facility]. No PRN medications were requested or required on this shift. He had a fluid intake of 1900 ML, 4 voids and 1 BM, his last CIWA was 8 @ 1600. He has attended all groups today and is interacting with his peers. Endorsed to warehouse supervisor 3rd shift.
[2018-03-30 20:00] VITALS: BP 107/72
--- NOTE | 2018-03-30 20:00 | NUR ---
Evening Rounds VS's obtained and stable. CIWA 8, AEB diaphoresis, fine tremors, anxiety and agitation, depression, anhedonia, difficulty concentrating and sleeping, fatigue and malaise.
[2018-03-30] MEDS: QUETIAPINE FUMARATE 25 MG TABLET PO PRN (20:43)
--- NOTE | 2018-03-30 20:43 | NUR ---
PRN Med Seroquel 50mg PO given for insomnia. Will continue to monitor, reassessing in 1 hour
[2018-03-30] MEDS ORDERED: QUET25TA PO (21:01)
--- NOTE | 2018-03-30 21:43 | NUR ---
PRN Reassessment Seroquel 50mg PO given for insomnia. At present pt is sleeping, RR 14, even and nonlabored. Med effective.
[2018-03-31] VITALS: BP 111/67
--- NOTE | 2018-03-31 | NUR ---
Midnight Rounds VS's obtained, stable. CIWA deferred r/t pt somnalance. Will continue to monitor, promptly attending to all s/sx's w/d or distress.
[2018-03-31 04:00] VITALS: BP 102/65
--- NOTE | 2018-03-31 04:00 | NUR ---
0400 Rounds VS's obtained/stable. CIWA deferred r/t pt somnalance. Will continue to monitor, promptly attending to all s/sx's w/d or distress.
--- NOTE | 2018-03-31 07:22 | NUR ---
End of Shift Endorsement given to day nurse. Pt admitted 03/24/18 for medically managed withdrawal from ETOH (750ml/day whiskey). Pt denies any PPH/PMH, seizures, or SI/HI. Pt has completed his 5 day Valium taper and is to be d/c'd to rehab this morning. Pt remains depressed and anxious over transition to rehab today and relationship/child situation but remains optimistic. Pt received Seroquel for sole PRN in eveing. Last CIWA 8, noted for fine tremors, light moisture, anxiety and restlessness, anhedonia. Pt slept for 9 hours, with 1450mls intake and 3 voids.
[2018-03-31 08:00] VITALS: BP 115/63
--- NOTE | 2018-03-31 08:10 | NUR ---
START OF SHIFT: Received Pt A/O X 4. He reports some anxiety abut discharge to RTC scheduled for this morning but states he is motivated to stay sober. Detox taper completed. CIWA 5. Fine tremors noted. Will continue with discharge planning. Will administer medications as ordered.
[2018-03-31] MEDS: KETOCONAZOLE 2% CREAM 30 GM TUBE TP SCH (08:49)
[2018-03-31] MEDS: FOLIC ACID 1 MG TABLET PO SCH (08:49)
[2018-03-31] MEDS: THIAMINE HCL 100 MG TABLET PO SCH (08:49)
[2018-03-31] MEDS: MULTIVITAMINS,THERAPEUTIC TABLET PO SCH (08:49)
--- NOTE | 2018-03-31 09:50 | NUR ---
DISCHARGE: Pt completed Valium taper to manage withdrawal symptoms and he states it was effective. He is A/O X 4. He denies S/I and H/I. He states he is mildly anxious about going to treatment today but states he is motivated to stay sober and is enthusiastic. Belongings returned. Educated Pt on discharge instructions. Pt escorted to [facility] where he was transported by [facility] to [facility] at 0938.
== END 2018-03-31 09:38 | disposition other institution (70) | DRG 895 ==
LOC: SRC 14:14
PROVIDERS: ADMIT Family Medicine Addiction Medicine; ATTEND Family Medicine Addiction Medicine
PROC: HZ2ZZZZ Detoxification Services for Substance Abuse Treatment (ICD-10-PCS; principal; 2018-03-24)
PROC: HZ41ZZZ Group Counseling for Substance Abuse Treatment, Behavioral (ICD-10-PCS; 2018-03-25)
DX: F10.239 Alcohol dependence with withdrawal, unspecified (principal); Y90.6 Blood alcohol level of 120-199 mg/100 ml; R74.0 Nonspecific elevation of levels of transaminase and lactic acid dehydrogenase [LDH]; Z81.1 Family history of alcohol abuse and dependence; F32.9 Major depressive disorder, single episode, unspecified; Z72.0 Tobacco use
CPT/HCPCS: 36415; 70030-TC; 80307; 83690; 83735; 85025; 86592; 86705; 86803; 87340; 87806; A4663; G0480; J3411